=== PATIENT | male | born 1940 | race African-American/Black ===

== ENCOUNTER 2020-09-27 21:04 | Emergency (ER) | payer SELFPAY ==
[~2020-09-27] VITALS: Ht 185.4 cm; Wt 83.0 kg
[2020-09-27] MEDS ORDERED: HYDROCODONE/ACETAMINOPHEN 10/325MG TABLET PO ONE (22:15)
[2020-09-27] MEDS ORDERED: KETOROLAC 60MG/2ML VIAL IM ONE (22:15)
[2020-09-28] MEDS ORDERED: IBUP-2028 MT (00:11)
[2020-09-28] MEDS ORDERED: GABAPENTIN 400MG CAPSULE PO ONE (00:15)
[2020-09-28 01:22] VITALS: BP 130/67
== END 2020-09-28 01:25 | disposition home or self-care (01) ==
LOC: ER 21:04
DX: M25.551 Pain in right hip (principal); M19.90 Unspecified osteoarthritis, unspecified site; E11.9 Type 2 diabetes mellitus without complications; I10 Essential (primary) hypertension; Z98.1 Arthrodesis status
CPT/HCPCS: 73502; 96372; 99283; J1885

== ENCOUNTER 2021-01-13 16:40 | Emergency (ER) | payer BC ==
[~2021-01-13] VITALS: Ht 175.3 cm; Wt 82.0 kg
[~2021-01-13 16:40] MED LIST: IBUP-2028 MT
[2021-01-13] MEDS ORDERED: MORPHINE SULFATE 4 MG/ML CPJ (NOT FOR IM USE) IV STA (19:35)
[2021-01-13] MEDS ORDERED: ONDANSETRON HCL 4MG/2ML INJ IV STA (19:35)
[2021-01-13] MEDS ORDERED: SODIUM CHLORIDE 0.9% 1,000 ML IV ONE (19:45)
[2021-01-13 21:33] LABS: CLARITY URINE CLEAR (CLEAR); COLOR URINE YELLOW (YELLOW); KETONES URINE TRACE (NEGATIVE); LEUKOCYTE ESTERASE URINE NEGATIVE (NEGATIVE); NITRITE URINE NEGATIVE (NEGATIVE); OCCULT BLOOD URINE NEGATIVE (NEGATIVE); PH URINE 5.5 (4.5-8.0); PROTEIN URINE NEGATIVE (NEGATIVE); SPECIFIC GRAVITY URINE 1.013 (1.005-1.030); UROBILINOGEN URINE 0.2 E.U./dL (0.2-1.0)
[2021-01-13 21:34] LABS: BASOPHILS % 0.4 % (0.0-2.0); EOSINOPHILS % 0.3 % (0.0-5.0); HEMATOCRIT. 31.5 % (42.0-52.0); LYMPHOCYTES % 12.9 % (20.0-50.0); MEAN CORPUSCULAR HEMOGLOBIN 30.6 pg (28.0-32.0); MEAN CORPUSCULAR VOLUME 87.8 fL (80.0-94.0); MONOCYTES % 6.3 % (2.0-8.0); NEUTROPHILS % 80.1 % (40.0-76.0); PLATELET 252 x1000/uL (130-400); RED BLOOD CELL COUNT 3.58 mill/uL (4.7-6.1); RED CELL DISTRIBUTION WIDTH 13.9 % (11.6-14.6)
[2021-01-13 21:38] LABS: CHLORIDE 110 mEq/L (98-107)
[2021-01-13] MEDS ORDERED: DOCU-138 MT (23:28)
[2021-01-14 00:57] VITALS: BP 137/65
== END 2021-01-14 00:58 | disposition home or self-care (01) ==
LOC: ER 16:40
DX: K62.89 Other specified diseases of anus and rectum (principal); K59.00 Constipation, unspecified; E11.9 Type 2 diabetes mellitus without complications; I10 Essential (primary) hypertension
CPT/HCPCS: 36415; 71045; 74176; 80053; 81003; 83690; 85025; 93005; 96361; 96374; 96375; 99285; J2270; J2405; J7030

== ENCOUNTER 2024-10-15 22:57 | Inpatient (IN) | payer BC, MEDICARE ==
[~2024-10-15] VITALS: Ht 180.3 cm; Wt 72.6 kg
[~2024-10-15 22:57] MED LIST changes: +DOCU-138 MT
[2024-10-16] VITALS (7 sets, daily range): BP systolic 133–160; BP diastolic 73–85; PULSE 73–110; RESP 16–19; TEMP 36.1–37.2; O2SAT 95–100
[2024-10-16 00:19] LABS: BASOPHILS % 0.6 % (0.0-2.0); EOSINOPHILS % 1.2 % (0.0-5.0); HEMATOCRIT. 27.2 % (42.0-52.0); HEMOGLOBIN. 8.8 g/dL (14.0-18.0); LYMPHOCYTES % 12.9 % (20.0-50.0); MEAN CORPUSCULAR HEMOGLOBIN 28.1 pg (28.0-32.0); MEAN CORPUSCULAR HGB CONC 32.4 g/dL (31.0-37.0); MEAN CORPUSCULAR VOLUME 86.7 fL (80.0-94.0); MEAN PLATELET VOLUME 7.7 fl (7.4-10.4); MONOCYTES % 9.9 % (2.0-8.0); NEUTROPHILS % 75.4 % (40.0-76.0); PLATELET 222 x1000/uL (130-400); RED BLOOD CELL COUNT 3.13 mill/uL (4.7-6.1); RED CELL DISTRIBUTION WIDTH 16.8 % (11.6-14.6); WHITE BLOOD COUNT 7.4 x1000/uL (4.5-11.0)
[2024-10-16 00:24] LABS: CHLORIDE 103 mEq/L (98-107); POTASSIUM 4.2 mEq/L (3.5-5.1); SODIUM 136 mEq/L (136-145)
[2024-10-16 00:25] LABS: CALCIUM 9.1 mg/dL (8.7-10.4); CARBON DIOXIDE 26 mEq/L (21-32)
[2024-10-16 00:30] LABS: CREATININE 1.2 mg/dL (0.6-1.3); GLUCOSE 148 mg/dL (70-105); UREA NITROGEN BLOOD 12 mg/dL (9-23)
[2024-10-16 00:31] LABS: TROPONIN I HIGH SENSITIVITY 7 ng/L (3.0-53)
[2024-10-16 00:32] LABS: ALANINE AMINOTRANSFERASE 8 IU/L (10-49); ALBUMIN 3.6 g/dL (3.2-4.8); ASPARTATE AMINOTRANSFERASE 16 IU/L (<34)
[2024-10-16 00:33] LABS: BILIRUBIN DIRECT 0.2 mg/dL (<=3.0); BILIRUBIN TOTAL 0.6 mg/dL (0.1-1.0); PROTEIN TOTAL 8.2 g/dL (6.0-8.3)
[2024-10-16] MEDS: DEXT 5%/0.45% NACL 1000ML 1,000 ML IV SCH (05:30)
[2024-10-16 08:33] LABS: TROPONIN I HIGH SENSITIVITY 6 ng/L (3.0-53)
[2024-10-16 08:38] LABS: HEPATITIS B SURFACE ANTIGEN NEGATIVE (Negative)
[2024-10-16 08:59] LABS: HEPATITIS C AB NON REACTIVE (Neg) (Negative)
[2024-10-16] MEDS: ENOXAPARIN 40MG/0.4ML SYR SUBCUT SCH (11:51)
[2024-10-16] MEDS: MORPHINE SULFATE 2 MG/ML INJ (NOT FOR IM USE) IV PRN (12:03)
[2024-10-16] MEDS ORDERED: GABA-290 PO (12:44)
[2024-10-16] MEDS ORDERED: GABA-1180 PO (12:44)
[2024-10-16] MEDS ORDERED: METF-415 PO (12:44)
[2024-10-16] MEDS ORDERED: TAMS-54 PO (12:44)
[2024-10-16] MEDS ORDERED: FINA5TAB11 PO (12:46)
[2024-10-16] MEDS ORDERED: HYDR-4009 PO (12:46)
[2024-10-16 13:52] LABS: CHLORIDE 102 mEq/L (98-107); POTASSIUM 4.1 mEq/L (3.5-5.1); SODIUM 135 mEq/L (136-145)
[2024-10-16 13:53] LABS: CARBON DIOXIDE 24 mEq/L (21-32)
[2024-10-16 13:58] LABS: CREATININE 1.1 mg/dL (0.6-1.3); GLUCOSE 194 mg/dL (70-105); UREA NITROGEN BLOOD 11 mg/dL (9-23)
[2024-10-16] MEDS ORDERED: PNEUMOCOCCAL 20-VAL CONJ-DIP CRM 0.5ML IM ONE (15:00)
[2024-10-16] MEDS ORDERED: HYDROCODONE/ACETAMINOPHEN 10/325MG TABLET PO SCH (17:15)
[2024-10-16] MEDS ORDERED: DEXTROSE 50% WATER 50ML SYRINGE IV PRN (17:15)
[2024-10-16] MEDS ORDERED: IBUPROFEN 400MG TABLET PO PRN (17:15)
[2024-10-16] MEDS: BLOOD SUGAR DIAGNOSTIC STRIP TEST SCH (17:20)
[2024-10-16] MEDS ORDERED: NALOXONE HCL 0.4MG/ML VIAL IV PRN (17:30)
[2024-10-16] MEDS: METFORMIN HCL 850MG TABLET PO SCH (18:40)
[2024-10-16] MEDS: INSULIN LISPRO 100 UNITS/ML SUBCUT SCH (18:42)
[2024-10-16] MEDS: TAMSULOSIN HCL 0.4MG SR CAPSULE PO SCH (20:23)
[2024-10-16] MEDS: GABAPENTIN 300MG CAPSULE PO SCH (20:23)
[2024-10-16] MEDS: HYDROCODONE/ACETAMINOPHEN 10/325MG TABLET PO PRN (20:23)
[2024-10-16] MEDS: FINASTERIDE 5MG TABLET PO SCH (20:23)
[2024-10-17] VITALS (8 sets, daily range): BP systolic 120–180; BP diastolic 64–90; PULSE 78–117; RESP 13–20; TEMP 36.2–37.1; O2SAT 94–100
[2024-10-17] MEDS: ONDANSETRON HCL 4MG/2ML INJ IV PRN (01:18)
[2024-10-17] MEDS: HYDRALAZINE 20MG/ML VIAL IV PRN (06:05)
[2024-10-17 08:05] LABS: BASOPHILS % 0.4 % (0.0-2.0); EOSINOPHILS % 0.6 % (0.0-5.0); HEMATOCRIT. 29.1 % (42.0-52.0); HEMOGLOBIN. 9.7 g/dL (14.0-18.0); LYMPHOCYTES % 18.4 % (20.0-50.0); MEAN CORPUSCULAR HEMOGLOBIN 28.5 pg (28.0-32.0); MEAN CORPUSCULAR HGB CONC 33.3 g/dL (31.0-37.0); MEAN CORPUSCULAR VOLUME 85.7 fL (80.0-94.0); MEAN PLATELET VOLUME 8.4 fl (7.4-10.4); MONOCYTES % 10.7 % (2.0-8.0); NEUTROPHILS % 69.9 % (40.0-76.0); PLATELET 208 x1000/uL (130-400); RED CELL DISTRIBUTION WIDTH 16.6 % (11.6-14.6); WHITE BLOOD COUNT 6.9 x1000/uL (4.5-11.0)
[2024-10-17 08:40] LABS: CHLORIDE 98 mEq/L (98-107); POTASSIUM 3.8 mEq/L (3.5-5.1); SODIUM 134 mEq/L (136-145)
[2024-10-17 08:44] LABS: CALCIUM 9.2 mg/dL (8.7-10.4); CARBON DIOXIDE 26 mEq/L (21-32)
[2024-10-17 08:49] LABS: CREATININE 1.1 mg/dL (0.6-1.3); GLUCOSE 257 mg/dL (70-105); UREA NITROGEN BLOOD 10 mg/dL (9-23)
[2024-10-17 08:50] LABS: ALBUMIN 3.4 g/dL (3.2-4.8)
[2024-10-17 08:51] LABS: ALANINE AMINOTRANSFERASE < 7 IU/L (10-49); ASPARTATE AMINOTRANSFERASE 14 IU/L (<34); BILIRUBIN DIRECT 0.2 mg/dL (<=3.0); BILIRUBIN TOTAL 0.6 mg/dL (0.1-1.0); PROTEIN TOTAL 7.9 g/dL (6.0-8.3)
[2024-10-17] MEDS: DOCUSATE SODIUM 100MG CAPSULE PO SCH (10:15)
[2024-10-17] MEDS: DEXT 5%/0.9% NACL 1,000 ML IV SCH (14:45)
[2024-10-17] MEDS: PANTOPRAZOLE SODIUM 40 MG/VIAL IV SCH (15:58)
[2024-10-17] MEDS: BISACODYL 10MG SUPP PR SCH (16:22)
[2024-10-17] MEDS ORDERED: SENNOSIDES/DOCUSATE SOD 8.6/50MG TABLET PO PRN (18:00)
[2024-10-17] MEDS: MIRTAZAPINE 15MG TABLET PO SCH (21:39)
[2024-10-17 22:05] LABS: HEMOGLOBIN 9.2 g/dL (14.0-18.0)
[2024-10-17 22:21] LABS: IRON 16 ug/dL (65-175)
[2024-10-17 22:24] LABS: TOTAL IRON BINDING CAPACITY 222 ug/dl (250-425)
[2024-10-18] VITALS: BP 161/77; PULSE 82; RESP 18; TEMP 37.1; O2SAT 95
[2024-10-18 04:00] VITALS: BP 156/73; PULSE 84; RESP 18; TEMP 37; O2SAT 98
[2024-10-18 08:00] VITALS: BP 171/80; PULSE 110; RESP 18; TEMP 36.4; O2SAT 98
[2024-10-18 08:02] LABS: CHLORIDE 100 mEq/L (98-107); SODIUM 132 mEq/L (136-145)
[2024-10-18 08:03] LABS: CALCIUM 8.8 mg/dL (8.7-10.4); CARBON DIOXIDE 23 mEq/L (21-32)
[2024-10-18 08:08] LABS: CREATININE 0.9 mg/dL (0.6-1.3); GLUCOSE 193 mg/dL (70-105); UREA NITROGEN BLOOD 8 mg/dL (9-23)
[2024-10-18] MEDS ORDERED: IOHEXOL-300 100 ML BOTTLE ONE (09:31)
[2024-10-18] MEDS ORDERED: NON FORMULARY MED XX SCH (10:15)
[2024-10-18 11:00] LABS: HEMATOCRIT. 31.7 % (42.0-52.0); HEMOGLOBIN. 10.4 g/dL (14.0-18.0); MEAN CORPUSCULAR VOLUME 86.6 fL (80.0-94.0); RED BLOOD CELL COUNT 3.66 mill/uL (4.7-6.1); WHITE BLOOD COUNT 7.8 x1000/uL (4.5-11.0)
[2024-10-18 11:01] LABS: BASOPHILS % 0.1 % (0.0-2.0); EOSINOPHILS % 0.3 % (0.0-5.0); LYMPHOCYTES % 11.9 % (20.0-50.0); MEAN CORPUSCULAR HEMOGLOBIN 28.4 pg (28.0-32.0); MEAN CORPUSCULAR HGB CONC 32.8 g/dL (31.0-37.0); MEAN PLATELET VOLUME 7.9 fl (7.4-10.4); MONOCYTES % 9.5 % (2.0-8.0); NEUTROPHILS % 78.2 % (40.0-76.0); PLATELET 242 x1000/uL (130-400); RED CELL DISTRIBUTION WIDTH 16.6 % (11.6-14.6)
[2024-10-18] MEDS: NA PHOS,M-B/NA PHOS,DI-BA ENEMA 118ML PR NR (11:24)
[2024-10-18] MEDS: IRON SUCROSE COMPLEX 100 MG/5 ML ML IV SCH (11:27)
[2024-10-18 12:00] VITALS: BP 151/78; PULSE 91; RESP 18; TEMP 36.3; O2SAT 98
[2024-10-18 16:00] VITALS: BP 162/81; PULSE 104; RESP 18; TEMP 36.6; O2SAT 97
[2024-10-18] MEDS: SENNOSIDES/DOCUSATE SOD 8.6/50MG TABLET PO SCH (21:06)
[2024-10-18 21:48] LABS: CLARITY URINE TURBID (CLEAR); COLOR URINE YELLOW (YELLOW); GLUCOSE URINE NEGATIVE (NEGATIVE); KETONES URINE NEGATIVE (NEGATIVE); LEUKOCYTE ESTERASE URINE 3+ (NEGATIVE); NITRITE URINE NEGATIVE (NEGATIVE); OCCULT BLOOD URINE TRACE (NEGATIVE); PH URINE 5.5 (4.5-8.0); PROTEIN URINE 1+ (NEGATIVE); SPECIFIC GRAVITY URINE 1.016 (1.005-1.030)
[2024-10-18 22:24] LABS: BACTERIA URINE 2+; RBC URINE 0-2 /hpf (0-2); SQUAMOUS EPITHELIAL CELL URINE FEW /lpf (RARE/1+); WBC URINE TNTC /hpf (0-2)
[2024-10-19] VITALS: BP 168/119; PULSE 73; RESP 16; TEMP 36.8; O2SAT 100
[2024-10-19 06:38] LABS: CARBON DIOXIDE 24 mEq/L (21-32); CHLORIDE 100 mEq/L (98-107); POTASSIUM 3.6 mEq/L (3.5-5.1); SODIUM 135 mEq/L (136-145)
[2024-10-19 06:39] LABS: CALCIUM 8.8 mg/dL (8.7-10.4)
[2024-10-19 06:40] LABS: BASOPHILS % 0.2 % (0.0-2.0); EOSINOPHILS % 0.4 % (0.0-5.0); HEMOGLOBIN. 9.6 g/dL (14.0-18.0); LYMPHOCYTES % 14.5 % (20.0-50.0); MEAN CORPUSCULAR HEMOGLOBIN 28.1 pg (28.0-32.0); MEAN CORPUSCULAR HGB CONC 33.1 g/dL (31.0-37.0); MEAN CORPUSCULAR VOLUME 85.1 fL (80.0-94.0); MEAN PLATELET VOLUME 8.5 fl (7.4-10.4); MONOCYTES % 13.1 % (2.0-8.0); NEUTROPHILS % 71.8 % (40.0-76.0); PLATELET 243 x1000/uL (130-400); RED CELL DISTRIBUTION WIDTH 16.4 % (11.6-14.6); WHITE BLOOD COUNT 7.9 x1000/uL (4.5-11.0)
[2024-10-19 06:42] LABS: UREA NITROGEN BLOOD 7 mg/dL (9-23)
[2024-10-19 06:44] LABS: ALANINE AMINOTRANSFERASE < 7 IU/L (10-49); GLUCOSE 113 mg/dL (70-105)
[2024-10-19 06:45] LABS: ALBUMIN 3.2 g/dL (3.2-4.8); ASPARTATE AMINOTRANSFERASE 12 IU/L (<34)
[2024-10-19 06:46] LABS: BILIRUBIN DIRECT 0.2 mg/dL (<=3.0); BILIRUBIN TOTAL 0.5 mg/dL (0.1-1.0); PHOSPHORUS 3.1 mg/dL (2.5-4.9); PROTEIN TOTAL 7.6 g/dL (6.0-8.3)
[2024-10-19 08:00] VITALS: BP 130/61; PULSE 126; RESP 17; TEMP 36.9; O2SAT 98
[2024-10-19 11:56] LABS: FOLIC ACID (FOLATE) SERUM 11.51 ng/mL (>5.38); VITAMIN B12 SERUM 421 pg/mL (211-911)
[2024-10-19] MEDS: CEFTRIAXONE 1GM/50ML 50 ML IV SCH (13:55)
[2024-10-19 16:00] VITALS: BP 130/92; PULSE 92; RESP 16; TEMP 36.8; O2SAT 98
[2024-10-19 20:00] VITALS: BP 145/71; PULSE 119; RESP 19; TEMP 36.6; O2SAT 96
[2024-10-20] VITALS: BP 144/76; PULSE 107; RESP 18; TEMP 36.7; O2SAT 96
[2024-10-20 04:00] VITALS: BP 142/61; PULSE 94; RESP 18; TEMP 36.8; O2SAT 98
[2024-10-20 08:00] VITALS: BP 120/61; PULSE 85; RESP 19; TEMP 36.6; O2SAT 95
[2024-10-20 12:00] VITALS: BP_SYST 120; BP_SYST 131; BP_DIAS 61; BP_DIAS 68; PULSE 85; PULSE 89; RESP 19; TEMP 36.6; TEMP 36.7; O2SAT 95; O2SAT 98
[2024-10-20 16:00] VITALS: BP 149/72; PULSE 98; RESP 20; TEMP 36.4; O2SAT 98
== END 2024-10-20 22:09 | disposition home or self-care (01) | DRG 435 ==
LOC: ER 22:57 → 6WST 10-16 00:58 → EDBEDREQ 10-16 01:19 → EDBEDREQTM 10-16 01:19
PROVIDERS: ADMIT Internal Medicine; ATTEND Internal Medicine
DX: C25.9 Malignant neoplasm of pancreas, unspecified (principal); L89.313 Pressure ulcer of right buttock, stage 3; L89.323 Pressure ulcer of left buttock, stage 3; F11.20 Opioid dependence, uncomplicated; N39.0 Urinary tract infection, site not specified; E87.1 Hypo-osmolality and hyponatremia; K92.2 Gastrointestinal hemorrhage, unspecified; R62.7 Adult failure to thrive; I10 Essential (primary) hypertension; E78.5 Hyperlipidemia, unspecified; G89.29 Other chronic pain; E11.40 Type 2 diabetes mellitus with diabetic neuropathy, unspecified; K59.00 Constipation, unspecified; M47.816 Spondylosis without myelopathy or radiculopathy, lumbar region; R63.4 Abnormal weight loss; Z68.22 Body mass index [BMI] 22.0-22.9, adult
CPT/HCPCS: 36415; 71045; 74018; 74177; 80048; 80076; 81003; 82607; 82728; 82746; 82962; 83036; 83540; 83550; 83735; 83880; 84100; 84484; 85014; 85018; 85025; 86705; 87077; 87186; 87340; 93005; 99285; A4606; J0360; J0696; J1650; J1815; J2270; J2405; J2470; J7042; Q9967